=== PATIENT | female | born 1990 | race Caucasian/White ===

== ENCOUNTER 2021-09-28 15:24 | Observation (INO) | payer OTHER ==
[~2021-09-28] VITALS: Ht 172.7 cm; Wt 76.4 kg
[2021-09-28 10:20] VITALS: BP 110/47
[2021-09-28] MEDS ORDERED: 0.9%NACL 1000ML 1,000 ML IV ONE (16:00)
[2021-09-28] MEDS ORDERED: MORPHINE 2 MG SYG IVP ONE (16:00)
[2021-09-28] MEDS ORDERED: ONDANSETRON 4MG INJ IVP ONE (16:00)
[2021-09-28 16:02] LABS: BASOPHILS % (AUTO) 0.1 % (0.0-5.0); EOSINOPHILS % (AUTO) 0.3 % (0.0-8.0); HEMATOCRIT 32.2 % (36-48); LYMPHOCYTES % (AUTO) 9.4 % (21.0-51.0); MEAN CORPUSCULAR HEMOGLOBIN 20.6 pg (27.0-33.0); MEAN CORPUSCULAR HGB CONC 29.8 g/dL (32.0-36.0); MEAN CORPUSCULAR VOLUME 69.2 fL (79-99); MONOCYTES % (AUTO) 6.2 % (3.0-13.0); NEUTROPHILS % (AUTO) 83.5 % (40.0-77.0); PLATELET COUNT (AUTO) 278 K/uL (130-400); RED BLOOD CELL COUNT(AUTO) 4.65 MIL/uL (4.00-5.50); RED CELL DISTRIBUTION WIDTH 17.2 % (11.0-15.5); WHITE BLOOD COUNT (AUTO) 15.2 K/uL (4.8-10.8)
[2021-09-28 16:17] LABS: CREATININE 0.6 mg/dL (0.5-1.5); POTASSIUM 3.3 mmol/L (3.5-5.1)
[2021-09-28 16:21] LABS: ALBUMIN 3.8 g/dL (3.5-5.0); BILIRUBIN,TOTAL 0.6 mg/dL (0.2-1.0); TOTAL PROTEIN, SERUM 7.4 g/dL (6.0-8.3)
[2021-09-28 16:27] LABS: APPEARANCE,URINE Clear (CLEAR); BILIRUBIN,URINE Small (NEGATIVE); COLOR,URINE Dark Yellow (YELLOW); GLUCOSE, URINE (UA) Negative (NEGATIVE); KETONES,URINE >=80 mg/dL (NEGATIVE); LEUKOCYTE ESTERASE ,URINE Trace (NEGATIVE); NITRATE,URINE Negative (NEGATIVE); OCCULT BLOOD,URINE Negative (NEGATIVE); PH,URINE 5.5 (5.0-8.0); PROTEIN,URINE Trace mg/dL (NEGATIVE)
[2021-09-28 16:30] LABS: HCG,QUAL RESULT NEGATIVE (NEGATIVE)
[2021-09-28 16:37] LABS: BACTERIA,URINE Few /HPF (None Seen); MUCUS,URINE Moderate LPF (None Seen); RBC,URINE 0-1 /HPF (0-1); SQUAMOUS EPITHELIAL CELL,UR Moderate /HPF (0-2)
[2021-09-28] MEDS ORDERED: POTASSIUM BICARB/CIT AC 25 MEQ TABLET.EFF PO ONE (17:30)
[2021-09-28] MEDS ORDERED: 0.9%NACL 1000ML 1,000 ML IV SCH (18:00)
[2021-09-28] MEDS ORDERED: ONDANSETRON 4MG INJ IVP PRN (19:30)
[2021-09-28] MEDS ORDERED: MORPHINE 2 MG SYG IVP PRN (19:30)
[2021-09-28] MEDS: LACTATED RINGERS 1000ML 1,000 ML IV SCH (19:50)
[2021-09-28] MEDS ORDERED: LEVOFLOXACIN 750 MG/D5W 150 ML 150 ML IV SCH (20:00)
[2021-09-28] MEDS: KETOROLAC 15MG/ML VIAL (15MG/ML) IV PRN (21:02)
[2021-09-28] MEDS ORDERED: METRONIDAZOLE 500 MG TABLET ONE (22:40)
[2021-09-28] MEDS: METRONIDAZOLE 500 MG TABLET PO SCH (23:31)
[2021-09-29] VITALS (22 sets, daily range): BP systolic 101–176; BP diastolic 47–79
[2021-09-29 04:35] LABS: BASOPHILS % (AUTO) 0.5 % (0.0-5.0); EOSINOPHILS % (AUTO) 0.9 % (0.0-8.0); HEMATOCRIT 28.9 % (36-48); LYMPHOCYTES % (AUTO) 19.7 % (21.0-51.0); MEAN CORPUSCULAR HEMOGLOBIN 20.4 pg (27.0-33.0); MEAN CORPUSCULAR HGB CONC 28.7 g/dL (32.0-36.0); MONOCYTES % (AUTO) 8.4 % (3.0-13.0); NEUTROPHILS % (AUTO) 70.2 % (40.0-77.0); PLATELET COUNT (AUTO) 225 K/uL (130-400); RED BLOOD CELL COUNT(AUTO) 4.07 MIL/uL (4.00-5.50); RED CELL DISTRIBUTION WIDTH 16.9 % (11.0-15.5); WHITE BLOOD COUNT (AUTO) 9.2 K/uL (4.8-10.8)
[2021-09-29 04:45] LABS: CREATININE 0.5 mg/dL (0.5-1.5); POTASSIUM 3.9 mmol/L (3.5-5.1)
[2021-09-29] MEDS: METRONIDAZOLE 500 MG TABLET PO SCH ×2 (06:15→15:28)
[2021-09-29] MEDS ORDERED: MORPHINE PF 100MG/10ML AMP IV ONE (08:05)
[2021-09-29] MEDS ORDERED: MIDAZOLAM HCL 1 MG/ML 2ML VIAL ONE (08:12)
[2021-09-29] MEDS ORDERED: PROPOFOL 10 MG/ML 20ML VIAL IV ONE (08:13)
[2021-09-29] MEDS ORDERED: ROCURONIUM 10MG/1ML SYR 10 MG/ML ML ONE (08:13)
[2021-09-29] MEDS ORDERED: FENTANYL CITRATE PF 50 MCG/1 ML 2ML VIAL ONE (08:13)
[2021-09-29] MEDS ORDERED: BUPIVACAINE/PF 0.5% 30ML VIAL ONE (08:16)
[2021-09-29] MEDS ORDERED: ONDANSETRON 4MG INJ ONE (08:21)
[2021-09-29] MEDS: LACTATED RINGERS 1000ML 1,000 ML IV SCH ×2 (08:50→10:11)
[2021-09-29] MEDS ORDERED: NEOSTIGMINE 5MG/5ML SYR IV ONE (09:49)
[2021-09-29] MEDS ORDERED: GLYCOPYRROLATE 1 MG/5 ML SYRINGE ONE (09:49)
[2021-09-29] MEDS: LIDOCAINE HCL 1% 20 ML VIAL ONE ×2 (10:00→10:31)
[2021-09-29] MEDS ORDERED: MEPERIDINE-PF 25 MG/ML SYG ONE (10:27)
[2021-09-29] MEDS: KETOROLAC 15MG/ML VIAL (15MG/ML) IV PRN ×2 (10:52→10:53)
[2021-09-29] MEDS ORDERED: ACETAMINOPHEN 325 MG TAB PO SCH (15:00)
[2021-09-29] MEDS ORDERED: IBUPROFEN 600 MG TABLET PO SCH (15:00)
[2021-09-29] MEDS ORDERED: GABAPENTIN 100 MG CAPSULE PO SCH (16:00)
== END 2021-09-29 18:24 | disposition home or self-care (01) ==
LOC: EDH 15:24 → INTOOBSV 17:45 → EDHIP 17:45 → 4AH 22:41
PROVIDERS: ADMIT Student in an Organized Health Care Education/Training Program; ATTEND Student in an Organized Health Care Education/Training Program
DX: K35.80 Unspecified acute appendicitis (principal); Z20.822 Contact with and (suspected) exposure to COVID-19; Z88.0 Allergy status to penicillin
CPT/HCPCS: 36415 ×2; 44970; 74176; 80048; 80053; 81001; 81025; 83690; 83735; 85025 ×2; 87635; 96365; 96375; 96376; 99284; A4215; A4649 ×4; A6206; C1769 ×3; G0378 ×6; J1885 ×3; J1956; J2175; J2250; J2274; J2405 ×2; J2704; J2710; J3010; J3490 ×2; J7030